=== PATIENT | female | born 1995 | race Two or more races ===

== ENCOUNTER 2020-10-25 15:14 | Outpatient (REF) | payer OTHER, SELFPAY | END 2020-10-25 15:15 | disposition home or self-care (01) | LOC: HO.LAB 15:14 | PROVIDERS: PCP Internal Medicine; Visit Provider Internal Medicine | DX: Z13.89 Encounter for screening for other disorder (principal) ==

== ENCOUNTER 2020-10-26 08:04 | Outpatient (REF) | payer OTHER, SELFPAY ==
[2020-10-26 09:51] LABS: Thyroid Stimulating Hormone 3.69 uIU/mL (0.32-4.0)
== END 2020-10-26 08:05 | disposition home or self-care (01) ==
LOC: HO.LAB 08:04
PROVIDERS: PCP Internal Medicine; Visit Provider Internal Medicine
DX: E03.8 Other specified hypothyroidism (principal); H93.11 Tinnitus, right ear
CPT/HCPCS: 84443

== ENCOUNTER 2021-04-25 13:47 | Outpatient (REF) | payer OTHER, SELFPAY ==
--- NOTE | 2021-04-25 14:31 | MHC.AU.HAS ---
Hearing Aid Evaluation Date of Visit: 04/25/21 Historical Information: Description of Hearing: Right- Mild low-frequency conductive hearing loss 250-1000 Hz, rising to normal hearing 4632-8699 Hz. Tinnitus. Otosclerosis. Left- Normal hearing except for a mild hearing loss at 250 and 8000 Hz. Hx of tympanoplasty and ossiculoplasty. Summary: Patient was seen for an audio at [facility]. Dr. Weldon did not recommend surgery for the right ear. Recommended a monaural hearing aid for the right side. Discussed options with Davidson Lucius. Interested in a ENID style hearing aid with standard batteries. Hearing Aid Prescription: Based on the individual?s shared listening needs, communication environments, dexterity, desire for connectivity, and personal preferences, the following prescription for amplification has been made: Right ear: Investment Sales Assistant: Daleeli Model: [employer] P70-13T Battery Size: 13 Color: P8-Black Linter Saw Sharpener: Size 0 M Type of Dome: Open Plan of Care: Audio and medical clearance provided by [facility]. Hearing aid ordered today. Call to schedule fitting upon receipt. Primary Diagnosis: H90.0 Conductive Hearing Loss, Bilateral Signature: Provider: Bell Mary, [facility]
== END 2021-04-25 13:48 | disposition home or self-care (01) ==
LOC: HO.HAP 13:47
PROVIDERS: Visit Provider Internal Medicine
DX: H90.0 Conductive hearing loss, bilateral (principal); Z46.1 Encounter for fitting and adjustment of hearing aid
CPT/HCPCS: 92590

== ENCOUNTER 2021-05-08 13:22 | Outpatient (REF) | payer OTHER, SELFPAY | END 2021-05-08 13:23 | disposition home or self-care (01) | LOC: HO.HAP 13:22 | PROVIDERS: Visit Provider Internal Medicine | DX: Z46.1 Encounter for fitting and adjustment of hearing aid (principal); H90.0 Conductive hearing loss, bilateral | CPT/HCPCS: V5011; V5020; V5241; V5257; V5266 ==

== ENCOUNTER 2021-05-24 14:13 | Outpatient (REF) | payer OTHER, SELFPAY ==
--- NOTE | 2021-05-24 16:09 | MHC.AU.FUR ---
Hearing Instrument Follow-Up Date of Visit: 05/24/21 Right Ear: Court Reporter: Phonak Model: Audeo P70-13T Serial Number: [id number] Repair Warranty: 07/25/2024 Loss and Damage Warranty: 07/25/2024 Battery Size: 13 Color: P8-Black Resident Care Associate: Size 0 M Type of Dome: Open Type of Wax Guard: Truushkerry Dispensed By: [facility] Date of Fittin10/08/2021 Follow-Up Summary: Hearing aid follow-up: Ms. Kan states that she has been really liking the hearing aid and it has been working well. Her only concern is that the behind the ear portion of the aid is rubbing on her head and causing irritation. She has very small ears and the hearing aid model with the 13 battery may be too large for her. She would like to try an Audeo P70-312 instead. She is holding on to the current aid until the new one comes in. Recommendations: Patient will be contacted when materials have arrived. Diagnosis Code(s): Primary Diagnosis: H90.0 Conductive Hearing Loss, Bilateral Signature: Provider: Bell Mary, [facility]
== END 2021-05-24 14:14 | disposition home or self-care (01) ==
LOC: HO.HAP 14:13
PROVIDERS: Visit Provider Internal Medicine
DX: Z13.89 Encounter for screening for other disorder (principal)

== ENCOUNTER 2021-06-06 09:23 | Outpatient (REF) | payer OTHER, SELFPAY | END 2021-06-06 09:24 | disposition home or self-care (01) | LOC: HO.HAP 09:23 | PROVIDERS: Visit Provider Internal Medicine | DX: Z13.89 Encounter for screening for other disorder (principal) ==

== ENCOUNTER 2021-06-10 09:18 | Outpatient (REF) | payer OTHER, SELFPAY ==
[2021-06-10 11:37] LABS: Thyroid Stimulating Hormone 2.42 uIU/mL (0.32-4.0)
== END 2021-06-10 09:19 | disposition home or self-care (01) ==
LOC: HO.LAB 09:18
PROVIDERS: PCP Internal Medicine; Visit Provider Obstetrics & Gynecology
DX: O26.891 Other specified pregnancy related conditions, first trimester (principal); E03.9 Hypothyroidism, unspecified
CPT/HCPCS: 36415; 84443; 99212

== ENCOUNTER 2021-06-14 08:56 | Outpatient (REF) | payer OTHER, SELFPAY ==
--- NOTE | ~2021-06-14 | US_ITS ---
EXAMINATION: OBSTETRICAL ULTRASOUND, FIRST TRIMESTER HISTORY: 25-year-old with the positive test LMP: 05/07/2021 COMPARISON: None TECHNIQUE: Real time transabdominal imaging with color and M-mode Doppler. FINDINGS: An empty intrauterine cavity. No evidence of IUP. Both maternal ovaries are seen and appear normal. GESTATIONAL AGE: 1. GA from LMP: 5.3 wks 2. GA from AUA: N/A wks ESTIMATED DATE OF DELIVERY: 1. VANDANA from LMP: 02/11/2022 2. VANDANA from AUA: N/A US/US OB pelvic and transvaginal IMPRESSION: 1. No evidence of IUP. Endometrial thickness of 1.1 cm. 2. No free fluid 3. Normal ovaries Clinical correlation is advised. No follow-up has been scheduled. Thank you very much for this referral. This note was generated with a voice recognition program. Please excuse any errors which may have been overlooked during my review of this note. Sometimes these errors may affect the content or meaning of a given sentence.
== END 2021-06-14 08:57 | disposition home or self-care (01) ==
LOC: HO.US 08:56
PROVIDERS: Visit Provider Obstetrics & Gynecology
DX: Z34.91 Encounter for supervision of normal pregnancy, unspecified, first trimester (principal); Z36.87 Encounter for antenatal screening for uncertain dates
CPT/HCPCS: 76801; 76817

== ENCOUNTER 2021-06-17 09:58 | Outpatient (REF) | payer OTHER, SELFPAY ==
[2021-06-17 12:01] LABS: HCG Quantitative 622 mIU/mL
== END 2021-06-17 09:59 | disposition home or self-care (01) ==
LOC: HO.LAB 09:58
PROVIDERS: PCP Internal Medicine; Visit Provider Obstetrics & Gynecology
DX: Z34.91 Encounter for supervision of normal pregnancy, unspecified, first trimester (principal)
CPT/HCPCS: 36415; 84702

== ENCOUNTER 2021-06-19 08:30 | Outpatient (REF) | payer OTHER, SELFPAY ==
[2021-06-19 09:31] LABS: HCG Quantitative 830 mIU/mL
== END 2021-06-19 08:31 | disposition home or self-care (01) ==
LOC: HO.LAB 08:30
PROVIDERS: PCP Internal Medicine; Visit Provider Obstetrics & Gynecology
DX: Z34.90 Encounter for supervision of normal pregnancy, unspecified, unspecified trimester (principal)
CPT/HCPCS: 36415; 84702

== ENCOUNTER 2021-06-21 09:44 | Outpatient (REF) | payer OTHER, SELFPAY ==
[2021-06-21 11:17] LABS: HCG Quantitative 1241 mIU/mL
== END 2021-06-21 09:45 | disposition home or self-care (01) ==
LOC: HO.LAB 09:44
PROVIDERS: PCP Internal Medicine; Visit Provider Obstetrics & Gynecology
DX: Z34.90 Encounter for supervision of normal pregnancy, unspecified, unspecified trimester (principal)
CPT/HCPCS: 36415; 84702; 99212

== ENCOUNTER 2021-06-23 10:16 | Outpatient (REF) | payer OTHER, SELFPAY ==
[2021-06-23 11:33] LABS: HCG Quantitative 1669 mIU/mL
== END 2021-06-23 10:17 | disposition home or self-care (01) ==
LOC: HO.LAB 10:16
PROVIDERS: PCP Internal Medicine; Visit Provider Obstetrics & Gynecology
DX: Z34.90 Encounter for supervision of normal pregnancy, unspecified, unspecified trimester (principal)
CPT/HCPCS: 36415; 84702

== ENCOUNTER 2021-06-25 10:04 | Outpatient (REF) | payer OTHER, SELFPAY ==
--- NOTE | ~2021-06-25 | US_ITS ---
EXAMINATION: US OBSTETRICAL ULTRASOUND CLINICAL INFORMATION: Encounter for supervision of normal . COMPARISON: Previous exam 06/14/2021 LMP: 05/07/2021. Gestational age by maternal dates is 7 weeks 0 days. Estimated date of delivery by maternal dates is 02/11/2022. TECHNIQUE: Transabdominal and transvaginal first trimester OB ultrasound. FINDINGS: The uterus is retroverted. No intrauterine is seen. Endometrial thickness is normal measuring 1 cm. The right ovary measures 3.4 x 1.8 x 1.9 cm. There is a 2.5 x 1.2 x 2.1 cm complex right ovarian cyst with thick wall. This is similar appearing to 06/14/2021 exam, image [id number]. The left ovary is normal-appearing and measures 2.7 x 1.1 x 2.5 cm. There is a small amount of fluid in the pelvis. US/US OB <= 14 weeks fetus IMPRESSION: No intrauterine seen. 2.5 x 1.2 x 2.1 cm complex right ovarian cyst. Small amount of fluid in the pelvis. Differential would include an early , missed and ectopic . Correlation with serial quantitative beta hCG and followup OB ultrasound recommended.
[2021-06-25 12:41] LABS: HCG Quantitative 2252 mIU/mL
== END 2021-06-25 10:05 | disposition home or self-care (01) ==
LOC: HO.US 10:04
PROVIDERS: PCP Internal Medicine; Visit Provider Obstetrics & Gynecology
DX: O36.80X0 Pregnancy with inconclusive fetal viability, not applicable or unspecified (principal)
CPT/HCPCS: 36415; 76801; 84702; 99212

== ENCOUNTER 2021-06-27 08:03 | Outpatient (REF) | payer OTHER, SELFPAY ==
--- NOTE | ~2021-06-27 | US_ITS ---
EXAMINATION: ULTRASOUND OB AND TRANSVAGINAL. CLINICAL INFORMATION: Abnormally rising quantitative. Question ectopic/subarachnoid bleed or of early IUP. COMPARISON: None TECHNIQUE: Transabdominal and transvaginal imaging of pelvis is performed FINDINGS: The uterus is anteverted with thickened endometrial stripe but no intramural uterine gestational sac. There is a gestational sac with pole seen in the right uterine cornua or proximal fallopian tube with a heart rate of 114 bpm. The crown-rump length measures 0.52 cm corresponding to 6 weeks 2 days. There is visualization of yolk sac, pole. The right ovary measures 3.7 x 1.9 x 3.1 cm. There is a small corpus luteal cyst measuring 2.1 x 1.8 x 2.6 cm. The left ovary measures 3.3 x 1.5 x 2.1 cm and appears unremarkable. There is no free fluid in the cul-de-sac. US/US OB pelvic and transvaginal IMPRESSION: Live ectopic right Cornual or fallopian tube . Right ovarian corpus luteal cyst. There is no free fluid. Results were called to Dr. Michael Mancini at 9:20 am by phone on 06/27/2021.
[2021-06-27 09:34] LABS: HCG Quantitative 2742 mIU/mL
== END 2021-06-27 08:04 | disposition home or self-care (01) ==
LOC: HO.US 08:03
PROVIDERS: PCP Internal Medicine; Visit Provider Obstetrics & Gynecology
DX: O00.90 Unspecified ectopic pregnancy without intrauterine pregnancy (principal)
CPT/HCPCS: 36415; 76801; 76817; 84702; 99212

== ENCOUNTER 2021-07-22 15:03 | Outpatient (REF) | payer OTHER, SELFPAY ==
[2021-07-22 16:01] LABS: MANUAL DIFF FLAG NO
[2021-07-22 16:07] LABS: Basophils Percent Auto 0.6 % (0-2); Eosinophils Absolute Auto 0.1 X10*3/uL (0.0-0.4); Eosinophils Percent Auto 2.3 % (0-4); Hematocrit 33.8 % (37-47); Imm Gran Abs Auto 0.02 X10*3/uL (0.00-0.03); Imm Gran Pct Auto 0.4 % (0.0-0.4); Lymphocytes Absolute Auto 1.7 X10*3/uL (1.2-4.9); Lymphocytes Percent Auto 34.8 % (20-40); Mean Corpuscular HGB Conc 32.5 g/dl (31.0-35.0); Mean Corpuscular Hemoglobin 32.4 pg (27.0-33.0); Mean Corpuscular Volume 99.4 fL (80-98); Mean Platelet Volume 11.3 fL (9.4-12.3); Monocytes Absolute Auto 0.4 X10*3/uL (0.1-1.2); Monocytes Percent Auto 8.1 % (2-11); Neutrophils Absolute Auto 2.6 X10*3/uL (2.0-8.3); Neutrophils Percent Auto 53.8 % (45-73); Platelet Count 256 X10*3/uL (160-400); Red Cell Distribution Width 13.2 % (11.0-16.0); White Blood Count 4.8 X10*3/uL (4.8-10.8)
[2021-07-22 16:45] LABS: Thyroid Stimulating Hormone 1.54 uIU/mL (0.32-4.0)
== END 2021-07-22 15:04 | disposition home or self-care (01) ==
LOC: HO.LAB 15:03
PROVIDERS: PCP Internal Medicine; Visit Provider Internal Medicine
DX: Z00.00 Encounter for general adult medical examination without abnormal findings (principal); Z13.31 Encounter for screening for depression; E03.9 Hypothyroidism, unspecified; L80 Vitiligo
CPT/HCPCS: 36415; 84443; 85025

== ENCOUNTER 2021-11-28 10:11 | Outpatient (REF) | payer OTHER, SELFPAY ==
[2021-11-28 11:38] LABS: Thyroid Stimulating Hormone 1.72 uIU/mL (0.32-4.0)
== END 2021-11-28 10:12 | disposition home or self-care (01) ==
LOC: HO.LAB 10:11
PROVIDERS: PCP Internal Medicine; Visit Provider Internal Medicine
DX: O99.280 Endocrine, nutritional and metabolic diseases complicating pregnancy, unspecified trimester (principal); E03.8 Other specified hypothyroidism
CPT/HCPCS: 36415; 84443

== ENCOUNTER 2022-01-08 15:00 | Outpatient (REF) | payer OTHER, SELFPAY ==
[2022-01-08 16:13] LABS: Thyroid Stimulating Hormone 0.52 uIU/mL (0.32-4.0)
== END 2022-01-08 15:01 | disposition home or self-care (01) ==
LOC: HO.LAB 15:00
PROVIDERS: PCP Internal Medicine; Visit Provider Internal Medicine
DX: E03.8 Other specified hypothyroidism (principal)
CPT/HCPCS: 36415; 84443

== ENCOUNTER 2022-03-31 15:05 | Outpatient (REF) | payer OTHER, SELFPAY ==
[2022-03-31 16:28] LABS: Thyroid Stimulating Hormone 1.09 uIU/mL (0.32-4.0)
== END 2022-03-31 15:06 | disposition home or self-care (01) ==
LOC: HO.LAB 15:05
PROVIDERS: PCP Internal Medicine; Visit Provider Internal Medicine
DX: E03.8 Other specified hypothyroidism (principal); Z33.1 Pregnant state, incidental
CPT/HCPCS: 36415; 84443

== ENCOUNTER 2022-07-10 15:20 | Outpatient (REF) | payer OTHER, SELFPAY ==
[2022-07-10 15:30] LABS: MANUAL DIFF FLAG NO
[2022-07-10 15:37] LABS: Hematocrit 35.9 % (37.0-47.0); Hemoglobin 12.1 g/dl (12.0-16.0); Imm Gran Pct Auto 0.2 % (0.0-0.4); Lymphocytes Percent Auto 33.9 % (20-40); Mean Corpuscular HGB Conc 33.7 g/dl (31.0-35.0); Mean Corpuscular Hemoglobin 31.4 pg (27.0-33.0); Mean Corpuscular Volume 93.2 fL (80.0-98.0); Neutrophils Percent Auto 57.6 % (45-73); Platelet Count 276 X10*3/uL (160-400); Red Blood Count 3.85 X10*6/uL (4.20-5.50); White Blood Count 6.1 X10*3/uL (4.8-10.8)
[2022-07-10 15:38] LABS: Basophils Percent Auto 0.3 % (0-2); Eosinophils Absolute Auto 0.1 X10*3/uL (0.0-0.4); Imm Gran Abs Auto 0.01 X10*3/uL (0.00-0.03); Lymphocytes Absolute Auto 2.1 X10*3/uL (1.2-4.9); Monocytes Absolute Auto 0.4 X10*3/uL (0.1-1.2); Neutrophils Absolute Auto 3.5 x10*3/uL (2.0-8.3)
[2022-07-10 16:22] LABS: Thyroid Stimulating Hormone 0.04 uIU/mL (0.32-4.0)
== END 2022-07-10 15:21 | disposition home or self-care (01) ==
LOC: HO.LAB 15:20
PROVIDERS: PCP Internal Medicine; Visit Provider Internal Medicine
DX: E03.8 Other specified hypothyroidism (principal)
CPT/HCPCS: 36415; 84443; 85025

== ENCOUNTER 2022-09-03 10:30 | Outpatient (REF) | payer OTHER, SELFPAY ==
[2022-09-03 13:27] LABS: Thyroid Stimulating Hormone 1.66 uIU/mL (0.32-4.0)
== END 2022-09-03 10:31 | disposition home or self-care (01) ==
LOC: HO.LAB 10:30
PROVIDERS: PCP Internal Medicine; Visit Provider Internal Medicine
DX: Z00.00 Encounter for general adult medical examination without abnormal findings (principal); E03.8 Other specified hypothyroidism; L80 Vitiligo; Z13.31 Encounter for screening for depression
CPT/HCPCS: 36415; 84443

== ENCOUNTER 2023-04-29 12:43 | Outpatient (REF) | payer OTHER, SELFPAY ==
[2023-04-29 12:55] LABS: MANUAL DIFF FLAG NO
[2023-04-29 13:26] LABS: Basophils Percent Auto 0.7 % (0-2); Eosinophils Absolute Auto 0.1 X10*3/uL (0.0-0.4); Eosinophils Percent Auto 1.1 % (0-4); Hematocrit 36.8 % (37.0-47.0); Hemoglobin 12.1 g/dl (12.0-16.0); Imm Gran Abs Auto 0.01 X10*3/uL (0.00-0.03); Imm Gran Pct Auto 0.2 % (0.0-0.4); Lymphocytes Absolute Auto 1.9 X10*3/uL (1.2-4.9); Lymphocytes Percent Auto 33.2 % (20-40); Mean Corpuscular HGB Conc 32.9 g/dl (31.0-35.0); Mean Corpuscular Hemoglobin 31.3 pg (27.0-33.0); Mean Corpuscular Volume 95.3 fL (80.0-98.0); Mean Platelet Volume 10.3 fL (9.4-12.3); Monocytes Absolute Auto 0.4 X10*3/uL (0.1-1.2); Monocytes Percent Auto 6.2 % (2-11); Neutrophils Absolute Auto 3.3 x10*3/uL (2.0-8.3); Neutrophils Percent Auto 58.6 % (45-73); Platelet Count 265 X10*3/uL (160-400); Red Blood Count 3.86 X10*6/uL (4.20-5.50); Red Cell Distribution Width 12.9 % (11.0-16.0); White Blood Count 5.6 X10*3/uL (4.8-10.8)
[2023-04-29 14:05] LABS: Alanine Aminotransferase 9 U/L (0-31); Albumin Level 4.5 g/dL (3.5-5.0); Alkaline Phosphatase 84 U/L (39-117); Anion Gap 11 (12-20); Aspartate Amino Transferase 14 U/L (5-31); Bilirubin Total 0.6 mg/dL (0.0-1.0); Blood Urea Nitrogen 10 mg/dL (9-16); Calcium 9.3 mg/dL (8.4-10.2); Carbon Dioxide 23 mmol/L (22-29); Chloride 111 mmol/L (96-108); Cholesterol 136 mg/dL; Estimated Glomerular Filt Rate > 60; Glucose Random 76 mg/dL (60-115); HDL Cholesterol 59 mg/dL; LDL Cholesterol Calculated 69 mg/dl; Potassium 4.3 mmol/L (3.3-5.1); Sodium 141 mmol/L (135-145); Total Protein 7.5 g/dL (6.5-8.0); Triglycerides 42 mg/dL
== END 2023-04-29 12:44 | disposition home or self-care (01) ==
LOC: HO.LAB 12:43
PROVIDERS: PCP Internal Medicine; Visit Provider Internal Medicine
DX: E03.8 Other specified hypothyroidism (principal); L80 Vitiligo; M22.2X9 Patellofemoral disorders, unspecified knee; Z68.21 Body mass index [BMI] 21.0-21.9, adult
CPT/HCPCS: 36415; 80053; 80061; 84443; 85025

== ENCOUNTER 2023-07-20 11:32 | Outpatient (REF) | payer OTHER, SELFPAY ==
[2023-07-20 13:22] LABS: Thyroid Stimulating Hormone 0.27 uIU/mL (0.32-4.0)
== END 2023-07-20 11:33 | disposition home or self-care (01) ==
LOC: HO.LAB 11:32
PROVIDERS: PCP Internal Medicine; Visit Provider Internal Medicine
DX: E03.8 Other specified hypothyroidism (principal); R53.83 Other fatigue; R63.5 Abnormal weight gain
CPT/HCPCS: 36415; 84443